=== PATIENT | female | born 2000 | race Caucasian/White ===

== ENCOUNTER 2023-03-11 23:47 | Day surgery (SDC) | payer OTHER ==
[2023-03-12 00:20] VITALS: BMI 25.3
[2023-03-12] MEDS ORDERED: hydrALAZINE 20 MG/ML VIAL SLOW IVP PRN (03:12)
== END 2023-03-12 03:22 | disposition home or self-care (01) ==
LOC: CSHLD/OP 23:47
PROVIDERS: ATTEND Family Medicine
DX: O47.1 False labor at or after 37 completed weeks of gestation (principal); Z3A.38 38 weeks gestation of pregnancy; Z88.1 Allergy status to other antibiotic agents
CPT/HCPCS: 99283

== ENCOUNTER 2023-03-12 09:36 | Inpatient (IN) | payer BC, OTHER ==
[2023-03-12 09:56] VITALS: BMI 25.3
[2023-03-12] MEDS ORDERED: hydrALAZINE 20 MG/ML VIAL SLOW IVP PRN ×2 (11:24→12:17)
[2023-03-12] MEDS ORDERED: Misoprostol 200 MCG TAB PR PRN (12:17)
[2023-03-12] MEDS ORDERED: Methylergonovine 0.2 MG/ML VIAL IM PRN (12:17)
[2023-03-12] MEDS ORDERED: Ondansetron PF 4 MG/2 ML Vial IVP PRN ×2 (12:17→21:06)
[2023-03-12] MEDS ORDERED: Lidocaine 1% (PF) 30 ML VIAL SC PRN (12:17)
[2023-03-12] MEDS ORDERED: Ibuprofen 800 MG TAB PO PRN (12:17)
[2023-03-12] MEDS ORDERED: Carboprost 250 MCG/ML AMP IM PRN (12:17)
[2023-03-12] MEDS ORDERED: Promethazine HCl 25 MG/ML VIAL IM PRN ×2 (12:17→21:06)
[2023-03-12] MEDS ORDERED: Tranexamic Acid 1,000 MG/10 ML VIAL IVP PRN (12:17)
[2023-03-12] MEDS ORDERED: Lactated Ringer's 1,000 ML IV SCH (12:30)
[2023-03-12] MEDS ORDERED: Oxytocin 30 units/NS 500 ML 500 ML IV SCH ×2 (12:30)
[2023-03-12 13:43] LABS: Hematocrit 35.6 % (34.9-44.5); Mean Corpuscular HGB CONC 33.7 g/dL (32.0-36.0); Mean Corpuscular Hemoglobin 29.6 pg (27.0-33.0); Mean Corpuscular Volume 87.9 fl (81.6-98.3); Mean Platelet Volume 11.6 fl (7.4-10.4); Platelet Count 238 10x3/uL (150-450); RBC Distribution Width 12.4 % (11.5-14.5); Red Blood Cell (RBC) Count 4.05 10x6/uL (3.90-5.03); White Blood Cell (WBC) Count 16.2 10x3/uL (3.5-10.5)
[2023-03-12 14:08] LABS: HBSAg Index 0.15 S/CO (0-0.99); Hep B Surf Ag - L&D Non-Reactive S/CO (NonReactive); Syphilis Antibody Nonreactive (Nonreactive); Syphilis Antibody Index 0.03 S/CO (<1.00 Non-Reactive)
[2023-03-12 15:33] LABS: HIV (1/2) Antibody/Antigen Non-Reactive (NonReactive); HIV 1/2 INDEX 0.08 S/CO (<1.00)
[2023-03-12] MEDS ORDERED: fentaNYL/Ropivacaine Epidural 100 ML ONE (20:22)
[2023-03-12] MEDS ORDERED: Moisturizing Cream (Eucerin) 113 GM JAR TOP PRN (21:06)
[2023-03-12] MEDS ORDERED: diphenhydrAMINE 50 MG/ML VIAL IVP PRN (21:06)
[2023-03-12] MEDS ORDERED: Naloxone HCl 0.4 mg/ml Vial IVP PRN ×2 (21:06)
[2023-03-12] MEDS ORDERED: ePHEDrine Sulfate 50 MG/10 ML VIAL SLOW IVP PRN (21:06)
[2023-03-12] MEDS ORDERED: Acetaminophen 325 MG TAB PO PRN (21:06)
[2023-03-12] MEDS ORDERED: Lactated Ringer's 500 ML IV PRN (21:06)
[2023-03-12] MEDS ORDERED: Communication Order-Pharmacy FS SCH (21:15)
[2023-03-12] MEDS ORDERED: fentaNYL 2 mcg/Ropivacaine 0.2% Epidural 100 ML CADD EPIDURAL SCH (21:15)
[2023-03-13 02:21] LABS: RapidComm Collect By CBN; pH (Cord, venous) 7.333 (7.250-7.350)
[2023-03-13] MEDS ORDERED: Benzocaine-Menthol 82.5 ML CAN TOP PRN (04:31)
[2023-03-13] MEDS ORDERED: HYDROcodone/Acetaminophen 5/325 mg Tablet PO PRN (04:31)
[2023-03-13] MEDS ORDERED: hydrALAZINE 20 MG/ML VIAL SLOW IVP PRN (04:31)
[2023-03-13] MEDS ORDERED: Bisacodyl 10 MG SUPP PR PRN (04:31)
[2023-03-13] MEDS ORDERED: Milk Of Magnesia 30 ML UDCUP PO PRN (04:31)
[2023-03-13] MEDS: Ibuprofen 800 MG TAB PO SCH ×3 (05:17→21:54)
[2023-03-13] MEDS: Ferrous Sulfate 325 MG TAB PO SCH ×2 (07:11→16:10)
[2023-03-13] MEDS: Docusate 100 MG CAP PO SCH ×2 (11:28→21:55)
[2023-03-14] MEDS: Ibuprofen 800 MG TAB PO SCH ×3 (05:44→21:23)
[2023-03-14] MEDS: Ferrous Sulfate 325 MG TAB PO SCH ×2 (07:27→18:38)
[2023-03-14] MEDS: Docusate 100 MG CAP PO SCH ×2 (09:17→21:23)
[2023-03-15] MEDS: Ibuprofen 800 MG TAB PO SCH (05:42)
[2023-03-15] MEDS: Ferrous Sulfate 325 MG TAB PO SCH (06:57)
[2023-03-15 07:35] VITALS: BP 108/60; TEMP 97.8
[2023-03-15] MEDS: Docusate 100 MG CAP PO SCH (07:43)
== END 2023-03-15 12:45 | disposition home or self-care (01) | DRG 807 ==
LOC: CSHLD/OP 09:36 → CSHLD 12:18 → CSHPP 03-13 04:41
PROVIDERS: ADMIT Family Medicine; ATTEND Family Medicine
PROC: 10E0XZZ Delivery of Products of Conception, External Approach (ICD-10-PCS; principal; 2023-03-13)
PROC: 0HQ9XZZ Repair Perineum Skin, External Approach (ICD-10-PCS; 2023-03-13)
DX: O69.81X0 Labor and delivery complicated by cord around neck, without compression, not applicable or unspecified (principal); Z37.0 Single live birth; Z3A.38 38 weeks gestation of pregnancy; Z88.1 Allergy status to other antibiotic agents; O70.0 First degree perineal laceration during delivery
CPT/HCPCS: 36415; 51702; 82805; 85027; 86780; 86850; 86900; 86901; 87340; 87389; 99285; J1200; J2590